=== PATIENT | female | born 1935 | race Caucasian/White ===

== ENCOUNTER 2018-08-16 16:30 | Emergency (ER) | payer MEDICARE ==
--- OUTSIDE RECORDS SUMMARY | 2018-08-16 16:57 | XMS REPORT | Continuity of Care Document ---
:1936 External Reference #:[id number] Author Name SADE Shaw Address [address] [place] [address] Care Team Providers Name Role Phone Ronni Durand RPA Primary Care Physician Unavailable Payers Date Identification Numbers Payment Provider Subscriber Effective: 2001 Policy Number: [id number] Medicare Part B Fariba Colindres PayID: [id number] [address] [place] [address] Policy Number: [id number] [facility] Healthcare Options Fariba Colindres PayID: [id number] [address] [place] [address] Problems Active Problems Provider Date Type 2 diabetes mellitus Onset: 03/14/2014 Non-toxic multinodular goiter Onset: 03/14/2014 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: 03/14/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 generalized Neck pain Onset: 12/13/2013 Gastroesophageal reflux disease Onset: 10/25/2013 Essential hypertension Onset: 10/25/2013 Spinal stenosis of lumbar region Onset: 10/25/2013 Vitamin D deficiency Onset: 08/22/2013 Pure hypercholesterolemia Onset: 11/05/2015 Gouty arthritis of the hand Ronni Durand RPA Onset: 09/09/2016 Allergic rhinitis due to pollen Ronni Durand RPA Onset: 09/09/2016 Localized, primary osteoarthritis of the hand Ronni Durand RPA Onset: 2017 Major depressive disorder, single episode, Ronni Durand RPA Onset: 2017 unspecified Inactive Problems Allergic rhinitis Onset: 10/25/2013 Inactive: 09/09/2016 Depressive disorder Onset: 10/25/2013 Inactive: 09/09/2016 Cellulitis of finger Ronni Durand RPA Onset: 09/08/2016 Inactive: 09/09/2016 Spinal stenosis Ronni Durand RPA Onset: 01/12/2017 Inactive: 03/05/2017 Adult health examination Onset: 10/30/2014 Inactive: 01/13/2018 Benign neoplasm of colon Onset: Inactive: 01/13/2018 Screening mammography Ronni Durand RPA Onset: 01/12/2017 Inactive: 01/13/2018 Screening for osteoporosis Ronni Durand RPA Onset: 01/12/2017 Inactive: 01/13/2018 Resolved Problems Hyperlipidemia Onset: 03/14/2014 Resolved: 05/04/2016 Acute upper respiratory infection, unspecified Ronni Durand RPA Onset: 05/04 Resolved: 05/04/2016 Family History Date Family Member(s) Observation Comments : (age 79 Father due to Unknown Years) Cause Father Peripheral vascular disease Father Alcoholism Father Type 2 Diabetes Mother Heart Attack : (age 74 Mother due to Unknown Years) Causes Mother Hypertension Children 4 Has 4 daughters: One with cervical/ovarian CA, One with MS, One has liver issues, One with GI issues with C.diff First Brother prostate cancer Second Brother prostate cancer First Sister osteoarthritis First Sister concussion after hit by a truck Social History Type Date Description Comments Sex Unknown Marital Status Legal Status: Lives alone in an apartment, 11/1999, 4 daughters, 10 grandchildren, 17 great grandchildren, 3 great great grandchildren 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 [place] [address] [facility] living 3 days weekly Hobbies enjoys bowling ETOH Use averages 10 alcoholic beverages yearly Tobacco Use Start: Unknown Patient has never smoked Smoking Status Reviewed: 01/13/18 Patient has never smoked Exercise walking Type/Frequency Allergies, Adverse Reactions, Alerts Active Allergies Reaction Severity Comments Date Augmentin 03/11/2010 Zithromax 03/11/2010 Medications Active Medications SIG Qnty Indications Ordering Date Provider Methimazole 1 by mouth twice a 60tabs E05.90 Nic Dunn, 08/16/2018 5mg day [employer] Tablets Nystatin apply by topically 90gm Raymundo Castellanos, 11/22/2017 to affect areas MD [id number]/GM Powder three times a day x2 weeks, then needed Olmesartan Medoxomil 1 by mouth every 90tabs Raymundo Castellanos, 09/15/2017 day 40mg Tablets Allopurinol Take One Tablet By 90tabs M10.041 Raymundo Castellanos, 01/12/2017 100mg Mouth Every Day Tablets Metoprolol Tartrate Take One Tablet By 180tabs Raymundo Castellanos, 09/09/2016 Mouth Twice A Day 50mg Tablets Vitamin D3 1 orally every day Unknown 10/31/2014 2000Unit Capsules Aleve Dispense 60 Take 2 Unknown 08/22/2013 220mg Tablets tablet orally up to bid prn. Refills: 0 Vitamin C Dispense 90 Take 1 Unknown 03/11/2010 500mg tablet orally Tablets twice a day Refills: 3 Ranitidine 150 Dispense 180 Take Unknown 03/11/2010 Maximum Strength 1 tablet orally twice a day 150mg Tablets Refills: 3 Aspirin Dispense 90 Take 1 Unknown 03/11/2010 325mg Tablets tablet orally every day Refills: 3 Simvastatin take one tablet by 90tabs Raymundo Castellanos, 03/01/2009 20mg mouth every day Tablets Xanax take 1 tablet 60tabs Raymundo Castellanos, 02/15/1998 0.25mg Tablets orally twice a day needed Loratadine 1 by mouth every Unknown 10mg day Capsules History Medications Spironolactone 1 by mouth 30tabs I10 Raymundo 07/15/2017 - 25mg Tablets every day every MD Emanuel 09/15/2017 morning Nisoldipine ER 1 tab by mouth 90tabs I10 Raymundo 03/04/2017 - 17mg Tablets ER every day MD Emanuel 03/04/2017 24HR Amlodipine Besylate 1 by mouth 90tabs I10 Raymundo 03/04/2017 - 5mg Tablets every day MD Emanuel 09/15/2017 Irbesartan take 1 tablet 90tabs Raymundo 10/08/2016 - 300mg Tablets orally every MD Emanuel 09/15/2017 day Keflex 1 cap by mouth 40caps L03.011 Raymundo 09/08/2016 - 500mg Capsules four times a MD Emanuel 09/09/2016 day Cefuroxime Axetil 1 tab by mouth 14tabs J06.9 Raymundo 05/04/2016 - 250mg Tablets twice a day MD Emanuel 05/11/2016 Metoprolol-Hydrochlorothi Dispense 180 Unknown 12/27/2014 - azide Take 1 tablet 09/09/2016 50-25mg Tablets orally bid Refills: 3 Irbesartan-Hydrochlorothi Dispense 90 Unknown 10/30/2014 - azide Take 1 tablet 10/08/2016 300-12.5mg Tablets orally every day Refills: 3 Lexapro Take 1/2 tablet Unknown 10/25/2013 - 5mg Tablets orally every 12/13/2013 day Refills: 0 Vitamin D3 Super Strength Take 1 tablet Unknown 08/22/2013 - orally every 10/31/2014 2000Unit Capsules day Refills: 0 Bactrim DS Dispense 14 Unknown 10/21/2012 - 800-160mg Tablets Take 1 tablet 10/28/2012 orally every day Refills: 0 Hydrochlorothiazide Take 1 tablet Unknown 05/02/2012 - 12.5mg orally Every 04/21/2013 Tablets day Refills: 0 Diclofenac Sodium Take 1 tablet, Unknown 04/10/2011 - 25mg Tablets delayed release 07/07/2011 DR (enteric coated) orally twice a day with food. Refills: 0 Lidoderm Apply 1 Unknown 09/30/2010 - 5% Patches adhesive patch, 10/18/2012 medicated topically on 12hrs, off 12 hrs Refills: 0 Vitamin D Dispense 13 Unknown 09/30/2010 - (Ergocalciferol) Take 1 capsule 11/30/2010 [id number] (hard, soft, Capsules etc.) orally weekly Refills: 0 Aleve Take 1 tablet Unknown 03/11/2010 - 220mg Tablets orally every 07/07/2011 day prn Refills: 0 D 5000 Take 1 tablet Unknown 03/11/2010 - 5000Unit Tablets orally twice a 11/05/2015 day Refills: 0 Metoprolol Succinate ER Take 1 tablet, Unknown 03/01/2009 - 100mg extended 12/27/2014 Tablets ER 24HR release 24 HR orally Every day Refills: 0 Benicar Take 1 tablet Unknown 03/01/2009 - 20mg Tablets orally Every 04/21/2013 day Refills: 0 Hydrochlorothiazide Take 1 tablet Unknown 03/01/2009 - 25mg orally qd 05/02/2012 Tablets Refills: 0 Tramadol HCL Take 1 tablet Unknown 02/26/2009 - 50mg Tablets orally Three 03/24/2010 times a day prn Refills: 0 Medications Administered in Office Medication SIG Qnty Indications Ordering Provider Date Administer Influenza Virus Vaccine Ronni Durand RPA 01/13/2018 Injection Administer Pneumococcal Vaccine No Ronni Durand RPA 01/12/2017 Physician Fee Sched Same Day Injection Administer Influenza Virus Vaccine Ronni Durand RPA 01/12/2017 Injection Administer Influenza Virus Vaccine Ronni Durand RPA 11/05/2015 Injection Immunizations CPT Code Status Date Vaccine Lot # [id number] Given 01/13/2018 Influenza Vaccine, Quadrivalent, Split Virus, Im [id number] Use (Multi-Dose) 10634 Given 01/12/2017 Prevnar 13 [id number] 92462 Given 01/12/2017 Influenza Vaccine, High Dose > 65 Years Old [id number] (Includes Medicare) 48342 Given 11/05/2015 Influenza Virus Vaccine, [place] 3 [place] [address] Given 10/30/2014 Influenza Virus Vaccine, [place] [address] [place] [address] Given 10/25/2013 Influenza Virus Vaccine, Split [place] [address] Given 10/24/2010 Influenza Virus Vaccine, Split 3 [place] [address] Given 10/24/2010 Influenza Virus Vaccine, Split 3 Yrs AB Vital Signs Date Vital Result Comment 08/16/2018 9:11am Height 58 inches 4'10" Weight 171.00 lb BMI (Body Mass Index) 35.7 kg/m2 BP Systolic 144 mmHg BP Diastolic 78 mmHg Heart Rate 83 /min Body Temperature 98.0 F Body Temperature 36.7 C O2 % BldC Oximetry 97 % 07/14/2018 10:51am Height 58 inches 4'10" Weight 172.00 lb BMI (Body Mass Index) 35.9 kg/m2 BP Systolic 122 mmHg BP Diastolic 82 mmHg Heart Rate 64 /min Body Temperature 98.2 F Body Temperature 36.8 C 01/13/2018 12:53pm Height 58 inches 4'10" Weight 174.00 lb BMI (Body Mass Index) 36.4 kg/m2 BP Systolic 140 mmHg BP Diastolic 78 mmHg Heart Rate 74 /min Body Temperature 98.1 F Body Temperature 36.7 C BP Systolic Recheck 120 mmHg BP Diastolic Recheck 78 mmHg 11/26/2017 1:11pm Height 58 inches 4'10" Weight 176.00 lb BMI (Body Mass Index) 36.8 kg/m2 BP Systolic 140 mmHg BP Diastolic 88 mmHg Heart Rate 70 /min Body Temperature 97.5 F Body Temperature 36.4 C BP Systolic Recheck 132 mmHg BP Diastolic Recheck 88 mmHg 08/27/2017 2:35pm Weight 175.50 lb BP Systolic 160 mmHg BP Diastolic 100 mmHg Heart Rate 80 /min BP Systolic Recheck 136 mmHg BP Diastolic Recheck 72 mmHg 07/15/2017 9:32am Height 58 inches 4'10" Weight 178.00 lb BMI (Body Mass Index) 37.2 kg/m2 BP Systolic 180 mmHg BP Diastolic 90 mmHg Heart Rate 72 /min Body Temperature 98.3 F Body Temperature 36.8 C BP Systolic Recheck 170 mmHg BP Diastolic Recheck 82 mmHg 03/11/2017 11:38am Height 58 inches 4'10" Weight 174.00 lb BMI (Body Mass Index) 36.4 kg/m2 BP Systolic 144 mmHg BP Diastolic 84 mmHg Heart Rate 74 /min Body Temperature 97.7 F Body Temperature 36.5 C BP Systolic Recheck 138 mmHg BP Diastolic Recheck 84 mmHg 03/04/2017 11:23am Height 58 inches 4'10" Weight 177.00 lb BMI (Body Mass Index) 37.0 kg/m2 BP Systolic 150 mmHg BP Diastolic 90 mmHg Heart Rate 78 /min Body Temperature 97.8 F Body Temperature 36.6 C BP Systolic Recheck 150 mmHg BP Diastolic Recheck 84 mmHg 01/12/2017 1:04pm Height 58 inches 4'10" Weight 177.00 lb BMI (Body Mass Index) 37.0 kg/m2 BP Systolic 150 mmHg BP Diastolic 80 mmHg Heart Rate 74 /min Body Temperature 97.6 F Body Temperature 36.4 C 09/09/2016 11:30am Height 58 inches 4'10" Weight 175.00 lb BMI (Body Mass Index) 36.6 kg/m2 BP Systolic 144 mmHg BP Diastolic 78 mmHg Heart Rate 80 /min Body Temperature 97.8 F Body Temperature 36.6 C 09/08/2016 9:38am Height 58 inches 4'10" Weight 175.00 lb BMI (Body Mass Index) 36.6 kg/m2 BP Systolic 144 mmHg BP Diastolic 84 mmHg Heart Rate 74 /min Body Temperature 96.0 F Body Temperature 35.6 C 05/04/2016 9:20am Height 58 inches 4'10" Weight 168.00 lb BMI (Body Mass Index) 35.1 kg/m2 BP Systolic 142 mmHg BP Diastolic 82 mmHg Heart Rate 78 /min Body Temperature 97.7 F Body Temperature 36.5 C BP Systolic Recheck 132 mmHg BP Diastolic Recheck 76 mmHg 11/05/2015 11:01am Height 58 inches Weight 164.00 lb BMI (Body Mass Index) 34.2723 kg/m2 BP Systolic 142 mmHg BP Diastolic 92 mmHg Heart Rate 64 /min Body Temperature 97.6 F Body Temperature 36.4 C 04/30/2015 10:02am Height 57.5 inches Weight 161.00 lb BMI (Body Mass Index) 34.233 kg/m2 BP Systolic 138 mmHg BP Diastolic 72 mmHg Heart Rate 66 /min Body Temperature 97.5 F Body Temperature 36.4 C 10/30/2014 9:05am Height 57.5 inches Weight 154.00 lb BMI (Body Mass Index) 32.7447 kg/m2 BP Systolic 150 mmHg BP Diastolic 78 mmHg Heart Rate 68 /min Body Temperature 97.7 F Body Temperature 36.5 C 05/16/2014 10:00am Height 56.5 inches Weight 152.00 lb BMI (Body Mass Index) 33.4736 kg/m2 BP Systolic 140 mmHg BP Diastolic 82 mmHg Heart Rate 68 /min Body Temperature 98.1 F Body Temperature 36.7 C 03/14/2014 8:03am BP Systolic 150 mmHg BP Diastolic 88 mmHg 03/14/2014 8:03am BP Systolic 142 mmHg BP Diastolic 88 mmHg 03/14/2014 8:03am Height 56.5 inches Weight 154.00 lb BMI (Body Mass Index) 33.914 kg/m2 BP Diastolic 78 mmHg Heart Rate 68 /min Body Temperature 98.8 F Body Temperature 37.1 C 12/13/2013 11:04am Height 56.5 inches Weight 156.00 lb BMI (Body Mass Index) 34.3545 kg/m2 BP Systolic 130 mmHg BP Diastolic 80 mmHg Heart Rate 72 /min Body Temperature 97.9 F Body Temperature 36.6 C 10/25/2013 9:01am Height 56.5 inches Weight 158.00 lb BMI (Body Mass Index) 34.7949 kg/m2 BP Systolic 142 mmHg BP Diastolic 80 mmHg Heart Rate 76 /min Body Temperature 97.9 F Body Temperature 36.6 C 08/22/2013 9:05am BP Systolic 152 mmHg BP Diastolic 80 mmHg 08/22/2013 9:05am BP Systolic 132 mmHg BP Diastolic 80 mmHg 08/22/2013 9:05am Height 59 inches Weight 169.00 lb BMI (Body Mass Index) 34.1301 kg/m2 BP Diastolic 78 mmHg Heart Rate 80 /min Body Temperature 97.9 F Body Temperature 36.6 C 04/21/2013 8:04am BP Systolic 148 mmHg BP Diastolic 78 mmHg 04/21/2013 8:04am BP Systolic 130 mmHg BP Diastolic 78 mmHg 04/21/2013 8:04am Height 59 inches Weight 166.00 lb BMI (Body Mass Index) 33.5243 kg/m2 BP Diastolic 82 mmHg Heart Rate 80 /min Body Temperature 97.6 F Body Temperature 36.4 C 10/18/2012 10:05am Height 59 inches Weight 172.00 lb BMI (Body Mass Index) 34.736 kg/m2 BP Systolic 124 mmHg BP Diastolic 74 mmHg Heart Rate 74 /min Body Temperature 97.8 F Body Temperature 36.6 C 05/02/2012 11:04am Height 59 inches Weight 172.00 lb BMI (Body Mass Index) 34.736 kg/m2 BP Systolic 146 mmHg BP Diastolic 72 mmHg Heart Rate 68 /min Body Temperature 98.1 F Body Temperature 36.7 C 04/12/2012 10:03am Height 59 inches Weight 171.00 lb BMI (Body Mass Index) 34.534 kg/m2 BP Systolic 136 mmHg BP Diastolic 84 mmHg Heart Rate 68 /min Body Temperature 97.6 F Body Temperature 36.4 C 10/13/2011 2:00am Height 59 inches Weight 171.00 lb BMI (Body Mass Index) 34.534 kg/m2 BP Systolic 148 mmHg BP Diastolic 80 mmHg Heart Rate 78 /min Body Temperature 97.7 F Body Temperature 36.5 C 07/07/2011 2:05am Height 59 inches Weight 177.00 lb BMI (Body Mass Index) 35.7458 kg/m2 BP Systolic 122 mmHg BP Diastolic 66 mmHg Heart Rate 68 /min Body Temperature 98.7 F Body Temperature 37.1 C 04/10/2011 8:04am Height 59 inches Weight 176.00 lb BMI (Body Mass Index) 35.5438 kg/m2 BP Systolic 140 mmHg BP Diastolic 81 mmHg Heart Rate 78 /min Body Temperature 98.5 F Body Temperature 36.9 C 09/23/2010 9:03am Height 59 inches Weight 182.00 lb BMI (Body Mass Index) 36.7555 kg/m2 BP Systolic 154 mmHg BP Diastolic 78 mmHg Heart Rate 72 /min Body Temperature 97.9 F Body Temperature 36.6 C 03/24/2010 10:04am Weight 177.00 lb BP Systolic 148 mmHg BP Diastolic 72 mmHg Heart Rate 60 /min Results Test Date Facility Test Result H/L Range Note CMP-Female 07/14/2018 [facility] Glucose 194 mg/ dL High 74-106 1 [address] [place] [address] [phone] BUN 33 mg/dL High 6-20 Creatinine 1.4 mg/dL High 0.5-1.3 Sodium 139 mmol/L 136-145 Potassium 5.3 mmol/L 3.5-5.3 Chloride 105 mmol/L 98-107 Co2 24 mEq/L 20-31 Anion Gap 10 mmol/L 7-16 eGFR-female 36 mL/m/1.73m - eGFR-Aa female 44 mL/m/1.73m - 2 Alk. Phos. 81 U/L 46-116 Alt 19 U/L 4-36 3 Ast 21 U/L 8-33 Total Bilirubin 0.3 mg/dL 0.3-1.2 Total Protein 6.4 g/dL 6.4-8.3 4 Albumin 4.5 g/dL 3.6-5.1 A/G Ratio 2.4 Ratio High 1.0-2.0 Globulin 1.9 g/dL 1.9-3.7 Calcium 10.0 mg/dL 8.9-10.5 LPPM 07/14/2018 [facility] Cholesterol 153 mg/ dL 0-200 [address] [place] [address] [phone] Triglycerides 125 mg/dL 0-249 5 HDL 45 mg/dL 40-60 LDL-Calculated 83 mg/dL 0-130 VLDL 25 mg/dL 0-28 Cardiac Risk 3.40 Ratio Low 3.7-5.3 Laboratory test 07/14/2018 [facility] Hgb A1c 7.5 % High 3.6-6.9 6 finding [address] [place] [address] [phone] Uric Acid 6.6 mg/dL 2.6-7.2 TSH3 0.094 mIU/ml Low 0.350-5.500 Free T4 1.56 ng/dL 0.89-1.80 Est. Average Glucose 169 mg/dL - 7 Venipuncture DONE - CMP-Female 01/13/2018 [facility] Glucose 119 mg/ dL High 74-106 8 [address] [place] [address] [phone] BUN 29 mg/dL High 6-20 Creatinine 1.3 mg/dL 0.5-1.3 Sodium 142 mmol/L 136-145 Potassium 5.0 mmol/L 3.5-5.3 Chloride 108 mmol/L High 98-107 Co2 24 mEq/L 20-31 Anion Gap 10 mmol/L 7-16 eGFR-female 39 mL/m/1.73m - eGFR-Aa female 48 mL/m/1.73m - 9 Alk. Phos. 77 U/L 46-116 Alt 22 U/L 4-36 10 Ast 26 U/L 8-33 Total Bilirubin 0.3 mg/dL 0.3-1.2 Total Protein 6.9 g/dL 6.4-8.3 11 Albumin 4.7 g/dL 3.6-5.1 A/G Ratio 2.1 Ratio High 1.0-2.0 Globulin 2.2 g/dL Low 2.4-3.7 Calcium 9.8 mg/dL 8.9-10.5 Laboratory test 01/13/2018 [facility] Uric Acid 6.9 mg/dL 2.6-7.2 12 finding [address] [place] [address] [phone] TSH3 0.126 mIU/ml Low 0.350-5.500 13 Free T4 1.52 ng/dL 0.89-1.80 14 Vitamin D, 25(Oh). 41.92 ng/ml 30-100 15 Est. Average Glucose 134 mg/dL - 16 Venipuncture DONE - 17 Cbcadp 01/13/2018 [facility] WBC. 9.54 x10E3/uL 4.2-12.0 [address] [place] [address] [phone] RBC 4.70 x10E6/uL 3.9-5.4 HGB 14.5 g/dL 12.0-16.0 HCT 44.1 % 36-47 MCV 93.9 fL 80-98 MCH 31.0 pg 27-33 MCHC 33.0 g/dL 32-36 RDW 13.3 % 11.2-15.2 PLT 184 x10E3/uL 135-420 MPV 9.1 fL 7.0-12.3 % Barbara 66.7 % 41.0-80.0 %Lym 26.2 % 10.0-45.2 %[place] 5.0 % 2.0-13.0 %Eos 1.8 % 0.0-8.0 %Baso 0.3 % 0.0-3.0 Neut 6.4 x10E3/uL 2.0-8.1 Lymp 2.5 x10E3/uL 0.6-3.1 [place] 0.5 x10E3/uL 0.0-1.0 Eos 0.2 x10E3/uL 0.0-0.6 Baso 0.0 x10E3/uL 0.0-0.2 Uam 01/13/2018 [facility] Color. YELLOW - [address] [place] [address] [phone] Clarity. CLEAR Clear-Clear Specific [place]. 1.013 1.005-1.030 PH. 5.0 4.6-8.0 Protein. NEGATIVE Neg-Negative Glucose, Urine NEGATIVE Neg-Negative Ketone. NEGATIVE Neg-Negative bilirubin. NEGATIVE Neg-Negative Blood. NEGATIVE Neg-Negative Nitrite. NEGATIVE Neg-Negative Leukocytes. NEGATIVE Neg-Negative Red Blood Cell 0-2 0-2 White Blood Cell 0-2 0-5 Squamous Epithelial Cell 0-2 0-10 Bacteria. NEGATIVE Neg-Negative LPPM 01/13/2018 [facility] Cholesterol 149 mg/ dL 0-200 [address] [place] [address] [phone] Triglycerides 110 mg/dL 0-249 18 HDL 54 mg/dL 40-60 LDL-Calculated 73 mg/dL 0-130 VLDL 22 mg/dL 0-28 Cardiac Risk 2.76 Ratio Low 3.7-5.3 Microalbumin Urine 01/13/2018 [facility] Random 29.0 mg/L - 19 [address] [place] [address] [phone] Random Urine Creatinine 75.7 mg/dL - 20 Alb/Creat Ratio 38.31 Ratio High 0-29.9 21 Laboratory test 01/13/2018 [facility] Hgb A1c 6.3 % 3.6-6.9 22 finding [address] [place] [address] [phone] BMP-Female 11/26/2017 [facility] Glucose 130 mg/ dL High 74-106 23 [address] [place] [address] [phone] BUN 22 mg/dL High 6-20 Creatinine 1.2 mg/dL 0.5-1.3 Sodium 142 mmol/L 136-145 Potassium 4.6 mmol/L 3.5-5.3 Chloride 106 mmol/L 98-107 Co2 26 mEq/L 20-31 Anion Gap 10 mmol/L 7-16 eGFR-female 43 mL/m/1.73m - eGFR-Aa female 52 mL/m/1.73m - 24 Calcium 9.9 mg/dL 8.9-10.5 Cbcadp 11/26/2017 [facility] WBC. 5.49 x10E3/uL 4.2-12.0 25 [address] [place] [address] [phone] RBC 4.49 x10E6/uL 3.9-5.4 HGB 13.7 g/dL 12.0-16.0 HCT 41.4 % 36-47 MCV 92.2 fL 80-98 MCH 30.5 pg 27-33 MCHC 33.1 g/dL 32-36 RDW 13.7 % 11.2-15.2 PLT 194 x10E3/uL 135-420 MPV 8.4 fL 7.0-12.3 % Barbara 57.2 % 41.0-80.0 %Lym 34.9 % 10.0-45.2 %[place] 5.8 % 2.0-13.0 %Eos 1.7 % 0.0-8.0 %Baso 0.4 % 0.0-3.0 Neut 3.1 x10E3/uL 2.0-8.1 Lymp 1.9 x10E3/uL 0.6-3.1 [place] 0.3 x10E3/uL 0.0-1.0 Eos 0.1 x10E3/uL 0.0-0.6 Baso 0.0 x10E3/uL 0.0-0.2 PT-Inr 11/26/2017 [facility] PT 10.9 Sec 10.6 -13.4 [address] [place] [id number] [phone] Inr 0.9 - 26 Laboratory test 11/26/2017 [facility] PTT 30.6 Sec 25.7-35.7 27 finding [address] [place] [address] [phone] Venipuncture DONE - 28 BMP-Female 08/27/2017 [facility] Glucose 118 mg/ dL High 74-106 29 [address] [place] [address] [phone] BUN 27 mg/dL High 6-20 Creatinine 1.2 mg/dL 0.5-1.3 Sodium 137 mmol/L 136-145 Potassium mmol/L Out 3.5-5.3 30 Chloride 107 mmol/L 98-107 Co2 20 mEq/L 20-31 Anion Gap 10 mmol/L 7-16 eGFR-female 43 mL/m/1.73m - eGFR-Aa female 52 mL/m/1.73m - 31 Calcium 9.6 mg/dL 8.9-10.5 Laboratory test 08/27/2017 [facility] Uric Acid 6.1 mg/dL 2.6-7.2 finding [address] [place] [address] [phone] Venipuncture DONE - Laboratory test 07/15/2017 [facility] Hgb A1c 5.7 % 3.6-6.9 32 finding [address] [place] [address] [phone] Uric Acid 5.9 mg/dL 2.6-7.2 33 TSH3 0.600 mIU/ml 0.350-5.500 34 Free T4 1.43 ng/dL 0.89-1.80 35 Est. Average Glucose 117 mg/dL - 36 Venipuncture DONE - 37 LPPM 07/15/2017 [facility] Cholesterol 136 mg/ dL 0-200 [address] [place], [place] [id number] [phone] Triglycerides 106 mg/dL 0-249 38 HDL 48 mg/dL 40-60 LDL-Calculated 67 mg/dL 0-130 VLDL 21 mg/dL 0-28 Cardiac Risk 2.83 Ratio Low 3.7-5.3 [facility]-Female 07/15/2017 [facility] Glucose 176 mg/ dL High 74-106 39 [address] [place] [address] [phone] BUN 21 mg/dL High 6-20 Creatinine 1.1 mg/dL 0.5-1.3 Sodium 142 mmol/L 136-145 Potassium 4.6 mmol/L 3.5-5.3 Chloride 107 mmol/L 98-107 Co2 28 mEq/L 20-31 Anion Gap 7 mmol/L 7-16 eGFR-female 48 mL/m/1.73m - eGFR-Aa female 58 mL/m/1.73m - 40 Alk. Phos. 91 U/L 46-116 Alt 23 U/L 4-36 41 Ast 25 U/L 8-33 Total Bilirubin 0.5 mg/dL 0.3-1.2 Total Protein 6.5 g/dL 6.4-8.3 42 Albumin 4.4 g/dL 3.6-5.1 A/G Ratio 2.1 Ratio High 1.0-2.0 Globulin 2.1 g/dL Low 2.4-3.7 Calcium 9.8 mg/dL 8.9-10.5 [facility]-Female 01/12/2017 [facility] Glucose 122 mg/ dL High 74-106 43 [address] [place] [address] [phone] BUN 24 mg/dL High 6-20 Creatinine 1.1 mg/dL 0.5-1.3 Sodium 142 mmol/L 136-145 Potassium 4.6 mmol/L 3.5-5.3 Chloride 108 mmol/L High 98-107 Co2 24 mEq/L 20-31 Anion Gap 10 mmol/L 7-16 eGFR-female 48 mL/m/1.73m - eGFR-Aa female 58 mL/m/1.73m - 44 Alk. Phos. 84 U/L 46-116 Alt 19 U/L 4-36 45 Ast 21 U/L 8-33 Total Bilirubin 0.4 mg/dL 0.3-1.2 Total Protein 6.9 g/dL 6.4-8.3 46 Albumin 4.7 g/dL 3.4-4.8 A/G Ratio 2.1 Ratio High 1.0-2.0 Globulin 2.2 g/dL Low 2.4-3.7 Calcium 10.2 mg/dL 8.9-10.5 Cbcadp 01/12/2017 [facility] WBC 7.0 x10E3/uL 4.2-12.0 [address] [place] [address] [phone] RBC 4.60 x10E6/uL 3.9-5.4 HGB 14.1 g/dL 12.0-16.0 HCT 42.0 % 36-47 MCV 91.2 fL 80-98 MCH 30.6 pg 27-33 MCHC 33.5 g/dL 32-36 RDW 13.6 % 11.2-15.2 PLT 192 x10E3/uL 135-420 MPV 8.9 fL 7.0-12.3 % Barbara 63.4 % 41.0-80.0 %Lym 28.3 % 10.0-45.2 %[place] 5.0 % 2.0-13.0 %Eos 2.8 % 0.0-8.0 %Baso 0.6 % 0.0-3.0 Neut 4.5 x10E3/uL 2.0-8.1 Lymp 2.0 x10E3/uL 0.6-3.1 [place] 0.4 x10E3/uL 0.0-1.0 Eos 0.2 x10E3/uL 0.0-0.6 Baso 0.0 x10E3/uL 0.0-0.2 Uam 01/12/2017 [facility] Color. YELLOW - 47 [address] [place] [address] [phone] Clarity. CLEAR Clear-Clear Specific [place]. 1.010 1.005-1.030 PH. 5.5 4.6-8.0 Protein. NEGATIVE Neg-Negative Glucose, Urine NEGATIVE Neg-Negative Ketone. NEGATIVE Neg-Negative bilirubin. NEGATIVE Neg-Negative Blood. NEGATIVE Neg-Negative Nitrite. NEGATIVE Neg-Negative Leukocytes. NEGATIVE Neg-Negative Red Blood Cell 3-5 High 0-2 White Blood Cell 0-2 0-5 Squamous Epithelial Cell 0-2 0-10 Bacteria. NEGATIVE Neg-Negative LPPM 01/12/2017 [facility] Cholesterol 166 mg/ dL 0-200 [address] [place] [address] [phone] Triglycerides 102 mg/dL 0-249 48 HDL 55 mg/dL 40-60 LDL-Calculated 91 mg/dL 0-130 VLDL 20 mg/dL 0-28 Cardiac Risk 3.02 Ratio Low 3.7-5.3 Laboratory test 01/12/2017 [facility] Hgb A1c 6.5 % 3.6-6.9 49 finding [address] [place] [address] [phone] Microalbumin 01/12/2017 [facility] Random 28.0 - 50 Urine [address] Microalbumin mg/[place] [address] [phone] Random Urine Creatinine 39.2 mg/dL - 51 Alb/Creat Ratio 71.43 Ratio High 0-29.9 Laboratory test 01/12/2017 [facility] Uric Acid 7.6 mg/dL High 2.6-7.2 finding [address] [place] [address] [phone] TSH3 0.211 mIU/ml Low 0.350-5.500 Free T4 1.61 ng/dL 0.89-1.80 Vitamin D, 25(Oh). 35.87 ng/ml 30-100 52 Est. Average Glucose 140 mg/dL - 53 Venipuncture DONE - CMP-Female 09/08/2016 [facility] Albumin 4.4 g/ dL 3.4-4.8 54 [address] [place] [address] [phone] A/G Ratio 1.6 Ratio 1.0-2.0 Globulin 2.7 g/dL 2.4-3.7 Calcium 9.8 mg/dL 8.9-10.5 Cbcadp 09/08/2016 [facility] WBC 6.0 x10E3/uL 4.2-12.0 [address] [place] [address] [phone] RBC 4.46 x10E6/uL 3.9-5.4 HGB 14.0 g/dL 12.0-16.0 HCT 40.6 % 36-47 MCV 90.9 fL 80-98 MCH 31.3 pg 27-33 MCHC 34.5 g/dL 32-36 RDW 13.6 % 11.2-15.2 PLT 189 x10E3/uL 135-420 MPV 8.5 fL 7.0-12.3 % Barbara 62.9 % 41.0-80.0 %Lym 28.5 % 10.0-45.2 %[place] 4.3 % 2.0-13.0 %Eos 3.7 % 0.0-8.0 %Baso 0.6 % 0.0-3.0 Neut 3.8 x10E3/uL 2.0-8.1 Lymp 1.7 x10E3/uL 0.6-3.1 [place] 0.3 x10E3/uL 0.0-1.0 Eos 0.2 x10E3/uL 0.0-0.6 Baso 0.0 x10E3/uL 0.0-0.2 Laboratory test 09/08/2016 [facility] Uric Acid 7.8 mg/dL High 2.6-7.2 finding [address] [place] [address] [phone] WSR 16 mm/hr 0-20 CRP <0.5 mg/dL Out 0-1.0 Venipuncture DONE - Laboratory test 05/04/2016 [facility] Hgb A1c 6.6 % 3.6-6.9 55 finding [address] [place] [address] [phone] CMP-Female 05/04/2016 [facility] Glucose 172 mg/ dL High 74-106 56 [address] [place] [address] [phone] BUN 28 mg/dL High 6-20 Creatinine 1.3 mg/dL 0.5-1.3 Sodium 143 mmol/L 136-145 Potassium 5.0 mmol/L 3.5-5.3 Chloride 104 mmol/L 98-107 Co2 27 mEq/L 20-31 Anion Gap 12 mmol/L 7-16 eGFR-female 40 mL/m/1.73m - eGFR-Aa female 48 mL/m/1.73m - 57 Alk. Phos. 91 U/L 46-116 Alt 17 U/L 4-36 Ast 22 U/L 8-33 Total Bilirubin 0.3 mg/dL 0.3-1.2 Total Protein 7.4 g/dL 6.4-8.3 58 Albumin 4.8 g/dL 3.4-4.8 A/G Ratio 1.8 Ratio 1.0-2.0 Globulin 2.6 g/dL 2.4-3.7 Calcium 10.1 mg/dL 8.9-10.5 LPPM 05/04/2016 [facility] Cholesterol 172 mg/ dL 0-200 [address] [place] [address] [phone] Triglycerides 130 mg/dL 0-249 59 HDL 52 mg/dL 40-60 LDL-Calculated 94 mg/dL 0-130 VLDL 26 mg/dL 0-28 Cardiac Risk 3.31 Ratio Low 3.7-5.3 Laboratory test 05/04/2016 [facility] TSH3 0.787 mIU/ml 0.350-5.500 60 finding [address] [place], [place] [phone] Free T4 1.17 ng/dL 0.89-1.80 61 Est. Average Glucose 143 mg/dL - 62 Venipuncture DONE - 63 Vitamin D, 25(Oh). 11/05/2015 [facility] Vitamin D, 25(Oh). 29.43 [address] [place], [place] [id number] [phone] Venipuncture 11/05/2015 [facility] Venipuncture Done [address] [place] [phone] Urine w/micro 11/05/2015 [facility] Bacteria. Negative [address] [place] [phone] Blood. Negative Clarity. Clear Color. Yellow Ketone. Negative Leukocytes. Negative [place] 0.3 Nitrite. Negative PH. 5.5 Protein. Negative RBC 4.48 Red Blood Cell 0-2 Specific [place]. 1.011 Squamous Epithelial Cell 0-2 WBC 6.7 White Blood Cell 0-2 bilirubin. Negative A1c 11/05/2015 [facility] Hgb A1c 6.1 [address] [address] [phone] CBC 11/05/2015 [facility] % Barbara 63.9 [address] [address] [phone] %Baso 0.5 %Eos 3.7 %Lym 26.9 %Breckinridge 5 Baso 0 Eos 0.3 HCT 41 HGB 14 Lymp 1.8 MCH 31.3 MCHC 34.2 MCV 91.6 MPV 8.9 Neut 4.3 PLT 189 RDW 13.4 Free T4 11/05/2015 [facility] Free T4 1.22 [address] [place] [address] [phone] Glucose, Urine 11/05/2015 [facility] Glucose, Urine Negative [address] [place] [address] [phone] Hepatic Function 11/05/2015 [facility] A/G Ratio 1.6 Panel Ck [place] [phone] Albumin 4.6 Alk. Phos. 76 Alt 17 Ast 21 Globulin 2.8 Total Bilirubin 0.4 Total Protein 7.4 Lipid Panel 11/05/2015 [facility] Cardiac Risk 2.95 [address] [place] [phone] Cholesterol 165 Hdl 56 LDL-Calculated 84 Triglycerides 127 VLDL 25 eGFR-Aa female 53 eGFR-female 43 Metabolic Panel 11/05/2015 [facility] Alb/Creat Ratio 13.64 [address] [place] [phone] Anion Gap 9 Bun 25 Calcium 10.2 Chloride 104 Co2 28 Creatinine 1.2 Est. Average Glucose 128 Glucose 129 Potassium 4.9 Sodium 141 TSH3 11/05/2015 [facility] TSH3 0.504 [address] [place] [address] [phone] Random Urine 11/05/2015 [facility] Random Urine 66 Creatinine [address] Creatinine [place] [address] [phone] Random Microalbumin 11/05/2015 [facility] Random Microalbumin 9 [address] [place] [address] [phone] A1c 04/30/2015 [facility] Hgb A1c 5.9 [address] [place] [phone] Hepatic Function 04/30/2015 [facility] A/G Ratio 1.9 Panel [address] [place] [address] [phone] Albumin 4.4 Alk. Phos. 89 Alt 14 Ast 17 Globulin 2.3 Total Bilirubin 0.4 Total Protein 6.7 Lipid Panel 04/30/2015 [facility] Cardiac Risk 2.96 [address] [place] [address] [phone] Cholesterol 163 Hdl 55 LDL-Calculated 90 Triglycerides 88 VLDL 18 eGFR-Aa female 53 eGFR-female 43 Metabolic Panel 04/30/2015 [facility] Anion Gap 7 [address] [place] [address] [phone] Bun 29 Calcium 9.7 Chloride 109 Co2 27 Creatinine 1.2 Est. Average Glucose 123 Glucose 121 Potassium 4.9 Sodium 143 Venipuncture 04/30/2015 [facility] Venipuncture Done [address] [place] [phone] A1c 10/30/2014 [facility] Hgb A1c 5.9 [address] [place] [phone] CBC 10/30/2014 [facility] % Barbara 68 [address] [place] [address] [phone] %Baso 0.5 %Eos 2.1 %Lym 24.8 %[place] 4.6 Baso 0 Eos 0.1 HCT 40.3 HGB 13.4 Lymp 1.7 MCH 29.9 MCHC 33.3 MCV 89.9 MPV 8.2 Neut 4.6 PLT 193 RDW 14 Free T4 10/30/2014 [facility] Free T4 1.43 [address] [place] [address] [phone] Glucose, Urine 10/30/2014 [facility] Glucose, Urine Negative [address] [place], [place] [phone] [phone] Hepatic Function 10/30/2014 [facility] A/G Ratio 2 Panel [address] [place] [address] [phone] Albumin 4.5 Alk. Phos. 88 Alt 15 Ast 17 Globulin 2.3 Total Bilirubin 0.4 Total Protein 6.8 Lipid Panel 10/30/2014 [facility] Cardiac Risk 2.91 [address] [place], [place] [address] [phone] Cholesterol 169 Hdl 58 LDL-Calculated 91 Triglycerides 100 VLDL 20 eGFR-Aa female 65 eGFR-female 54 Metabolic Panel 10/30/2014 [facility] Alb/Creat Ratio 10.83 [address] [place], [place] [phone] Anion Gap 10 Bun 24 Calcium 10.1 Chloride 104 Co2 27 Creatinine 1 Est. Average Glucose 123 Glucose 118 Potassium 4.8 Sodium 141 Random Microalbumin 10/30/2014 [facility] Random 8.[address] [place] [address] [phone] Random Urine 10/30/2014 [facility] Random Urine 79.4 Creatinine [address] Creatinine [place], [place] [phone] TSH3 10/30/2014 [facility] TSH3 0.[address] [place], [place] [address] [phone] Urine w/micro 10/30/2014 [facility] Bacteria. Negative [address] [place], [place] [phone] [phone] Blood. Negative Clarity. Clear Color. Yellow Ketone. Negative Leukocytes. Negative [place] 0.3 Nitrite. Negative PH. 5 Protein. Negative RBC 4.47 Red Blood Cell 0-2 Specific [place]. 1.013 Squamous Epithelial Cell 0-2 WBC 6.7 White Blood Cell 0-2 bilirubin. Negative Venipuncture 10/30/2014 [facility] Venipuncture Done [address] [address] [phone] Vitamin D, 25(Oh). 10/30/2014 [facility] Vitamin D, 25(Oh). 22.1 [address] [address] [phone] Urine w/micro 10/25/2013 [facility] BLD Negative [address] [place] [address] [phone] Bacteria 2+ Bili Negative Epi 2+ Ket Negative Adal Negative Nit Negative Pro Negative Uro Normal WBC 0-2 Urine W/micro 10/25/2013 [facility] Glu Normal [address] [address] [phone] PH 5 SP GR 1.01 TSH 10/25/2013 [facility] TSH 0.06 [address] [place] [address] [phone] Metabolic Panel 10/25/2013 [facility] Agap 10 [address] [address] [phone] BUN/CR 15 Bun 18 CA 10.1 CL 101 Co2 28 Crea 1.2 Gluc 174 K 3.9 NA 138 Malb 10/25/2013 [facility] Malb Negative [address] [place] [address] [phone] Lipid Panel 10/25/2013 [facility] Alti 22 [address] [place] [address] [phone] Chol 134 HDL Risk 3 Hdl 50 LDLC 58 TGL 132 Hepatic Function Panel 10/25/2013 [facility] Alb 4.2 [address] [address] [phone] Alp 106 Ast 16 TP 7.3 Tbil 0.3 FT4 10/25/2013 [facility] FT4 1.19 [address] [place] [address] [phone] CBC 10/25/2013 [facility] Gran % 64.7 [address] [place] [address] [phone] HCT 38.9 HGB 12.6 Lymph % 27.8 MCH 30 MCHC 32.4 MCV 92.6 Mid % 7.5 PLT 244 RBC 4.2 RDW 14.2 WBC 7 A1c 10/25/2013 [facility] A1c 6 [address] [place] [address] [phone] A1c 04/21/2013 [facility] A1c 7.1 [address] [place] [address] [phone] Hepatic Function Panel 04/21/2013 [facility] Alb 4.4 [address] [place] [address] [phone] Alp 103 Ast 19 TP 7.3 Tbil 0.4 Lipid Panel 04/21/2013 [facility] Alti 30 [address] [place] [address] [phone] Chol 172 HDL Risk 3 Hdl 56 LDLC 96 TGL 101 Metabolic Panel 04/21/2013 [facility] Agap 4 [address] [place] [address] [phone] BUN/CR 21.5 Bun 28 CA 9.3 CL 103 Co2 30 Crea 1.3 Gluc 165 K 4.4 NA 137 1 [place] [employer] (ADA) Recommended Range is 65-99 mg/dL 2 Normal Kidney Function or Mild Disease GFR >59 mL/min/1.73m2 Chronic Kidney Disease GFR 15-59 mL/min/1.73m2 Renal Failure GFR <15 mL/min/1.73m2 3 Effective 08/15/2016: [employer] has indicated interference with the drugs sulfasalazine and sulfapyridine. They suggest collection should occur prior to drug administration due to falsely depressed results. 4 Results may reflect a potential interference in Total Protein results in patients receiving dextran as blood volume expanders. 5 National Cholesterol Education Program (NCEP) Guidelines: Recommended Range <150 mg/dL 6 Hgb A1c Interpretation: <5.8% - Non-diabetic >6.5% - Diabetic <7.0% - ADA diabetic treatment goal 7 The Estimated Average Glucose is a calculation of the average glucose over the last 120 days including non-fasting as well as fasting levels. 8 [place] [employer] (ADA) Recommended Range is 65-99 mg/dL 9 Normal Kidney Function or Mild Disease GFR >59 mL/min/1.73m2 Chronic Kidney Disease GFR 15-59 mL/min/1.73m2 Renal Failure GFR <15 mL/min/1.73m2 10 Effective 08/15/2016: [employer] has indicated interference with the drugs sulfasalazine and sulfapyridine. They suggest collection should occur prior to drug administration due to falsely depressed results. 11 Results may reflect a potential interference in Total Protein results in patients receiving dextran as blood volume expanders. 12 fasting 13 fasting 14 fasting 15 Recommended Levels for Circulating 25-hydroxy Vitamin D: Vitamin D Status 25-OH Vitamin D Test Result Deficient <10ng/mL Insufficient 10-29ng/mL Sufficient 30-100ng/mL Potential Intoxication >100ng/mL A pediatric reference range has not been established using this method. 16 The Estimated Average Glucose is a calculation of the average glucose over the last 120 days including non-fasting as well as fasting levels. 17 fasting 18 National Cholesterol Education Program (NCEP) Guidelines: Recommended Range <150 mg/dL 19 Reference Range for Random Microalbumin not defined 20 Reference Range Random Urine Creatinine not defined 21 fasting 22 Hgb A1c Interpretation: <5.8% - Non-diabetic >6.5% - Diabetic <7.0% - ADA diabetic treatment goal 23 Labprint and transmitted at 424 11/26/17 kk [place] [employer] (ADA) Recommended Range is 65-99 mg/dL 24 Normal Kidney Function or Mild Disease GFR >59 mL/min/1.73m2 Chronic Kidney Disease GFR 15-59 mL/min/1.73m2 Renal Failure GFR <15 mL/min/1.73m2 25 results labprinted 343pm jmd 26 results labprinted and transmitted 405pm jmd * INR Interpretation : . Recommended Theraputic Range: 2.0 - 3.0 . For treatment/prophylaxis . of venous thrombosis, . prevention of embolism. . . 27 Please note reference range change as of 07/15/[address] JENN ARANDA 29 [place] [employer] (ADA) Recommended Range is 65-99 mg/dL 30 Specimen grossly hemolyzed- results unreportable- redraw suggested 31 Normal Kidney Function or Mild Disease GFR >59 mL/min/1.73m2 Chronic Kidney Disease GFR 15-59 mL/min/1.73m2 Renal Failure GFR <15 mL/min/1.73m2 32 Hgb A1c Interpretation: <5.8% - Non-diabetic >6.5% - Diabetic <7.0% - ADA diabetic treatment goal 33 fasting 34 fasting 35 fasting 36 The Estimated Average Glucose is a calculation of the average glucose over the last 120 days including non-fasting as well as fasting levels. 37 fasting 38 National Cholesterol Education Program (NCEP) Guidelines: Recommended Range <150 mg/dL 39 [place] [employer] (ADA) Recommended Range is 65-99 mg/dL 40 Normal Kidney Function or Mild Disease GFR >59 mL/min/1.73m2 Chronic Kidney Disease GFR 15-59 mL/min/1.73m2 Renal Failure GFR <15 mL/min/1.73m2 41 Effective 08/15/2016: [employer] has indicated interference with the drugs sulfasalazine and sulfapyridine. They suggest collection should occur prior to drug administration due to falsely depressed results. 42 Results may reflect a potential interference in Total Protein results in patients receiving dextran as blood volume expanders. 43 [place] [employer] (ADA) Recommended Range is 65-99 mg/dL 44 Normal Kidney Function or Mild Disease GFR >59 mL/min/1.73m2 Chronic Kidney Disease GFR 15-59 mL/min/1.73m2 Renal Failure GFR <15 mL/min/1.73m2 45 Effective 08/15/2016: [employer] has indicated interference with the drugs sulfasalazine and sulfapyridine. They suggest collection should occur prior to drug administration due to falsely depressed results. 46 Results may reflect a potential interference in Total Protein results in patients receiving dextran as blood volume expanders. 47 Labprint and Transmitted 01/12/17 [facility] 48 National Cholesterol Education Program (NCEP) Guidelines: Recommended Range <150 mg/dL 49 Hgb A1c Interpretation: <5.8% - Non-diabetic >6.5% - Diabetic <7.0% - ADA diabetic treatment goal 50 Reference Range for Random Microalbumin not defined 51 Reference Range Random Urine Creatinine not defined 52 Recommended Levels for Circulating 25-hydroxy Vitamin D: Vitamin D Status 25-OH Vitamin D Test Result Deficient <10ng/mL Insufficient 10-29ng/mL Sufficient 30-100ng/mL Potential Intoxication >100ng/mL A pediatric reference range has not been established using this method. 53 The Estimated Average Glucose is a calculation of the average glucose over the last 120 days including non-fasting as well as fasting levels. 54 Discussed at today 55 Hgb A1c Interpretation: <5.8% - Non-diabetic >6.5% - Diabetic <7.0% - ADA diabetic treatment goal 56 [place] [employer] (ADA) Recommended Range is 65-99 mg/dL 57 Normal Kidney Function or Mild Disease GFR >59 mL/min/1.73m2 Chronic Kidney Disease GFR 15-59 mL/min/1.73m2 Renal Failure GFR <15 mL/min/1.73m2 58 Results may reflect a potential interference in Total Protein results in patients receiving dextran as blood volume expanders. 59 National Cholesterol Education Program (NCEP) Guidelines: Recommended Range <150 mg/dL 60 fasting 61 fasting 62 The Estimated Average Glucose is a calculation of the average glucose over the last 120 days including non-fasting as well as fasting levels. 63 fasting Procedures Date Code Description Status 11/26/2017 24030 Electrocardiogram Complete Completed 03/04/2017 26784 Electrocardiogram Complete Completed 09/09/2016 36807 Electrocardiogram Complete Completed 11/05/2015 07100 Electrocardiogram Complete Completed 05/02/2013 01192 Cardiovascular Stress Test W/Interpretation & Report Completed 05/02/2013 19763 Myocardial Perfusion Imaging Tomographic (Spect) Multiple Completed Studies Encounters Type Date Location Provider Dx Diagnosis Office Visit 07/14/2018 [facility] AT [facility], E78.00 Pure 11:00a [facility] hypercholesterolem ia, unspecified E11.9 Type 2 diabetes mellitus without complications M10.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, 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 I10 Essential (primary) hypertension Z79.84 halfway (current) use of oral hypoglycemic drugs Office Visit 01/13/2018 1:00p [facility] AT [facility], Z00.00 Encntr for [facility] general adult medical exam w/o abnormal findings I10 Essential (primary) hypertension E78.00 Pure hypercholesterolemia, unspecified E11.9 Type 2 diabetes mellitus without complications M10.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, 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 F32.9 Major depressive disorder, single episode, unspecified K21.9 Gastro-esophageal reflux disease without esophagitis E55.9 Vitamin D deficiency, unspecified M48.00 Spinal stenosis, site unspecified J30.1 Allergic rhinitis due to pollen Z23 Encounter for immunization Office Visit 11/26/2017 [facility] Ronn[place], Z01.818 Encounter for 1:40p AT [facility] other preprocedural examination C44.311 Basal cell carcinoma of skin of nose I10 Essential (primary) hypertension E78.00 Pure hypercholesterolemia, unspecified E11.9 Type 2 diabetes mellitus without complications M10.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, 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 F32.9 Major depressive disorder, single episode, unspecified K21.9 Gastro-esophageal reflux disease without esophagitis E55.9 Vitamin D deficiency, unspecified J30.1 Allergic rhinitis due to pollen M48.00 Spinal stenosis, site unspecified Office Visit 08/27/2017 2:40p [facility] AT [facility], [facility] Essential [facility] (primary) hypertension Office Visit 07/15/2017 9:00a [facility] AT [facility], 0 Essential [facility] (primary) hypertension E78.00 Pure hypercholesterolemia, unspecified E11.9 Type 2 diabetes mellitus without complications M10.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, 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 Office Visit 03/11/2017 [facility] Primary [facility], 0 Essential 11:20a AT [facility] (primary) hypertension Office Visit 03/04/2017 [facility] Ronni Durand, M19.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, right hand Z01.818 Encounter for other preprocedural examination I10 Essential (primary) hypertension E78.00 Pure hypercholesterolemia, unspecified E11.9 Type 2 diabetes mellitus without complications M10.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, 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 F32.9 Major depressive disorder, single episode, unspecified K21.9 Gastro-esophageal reflux disease without esophagitis E55.9 Vitamin D deficiency, unspecified J30.1 Allergic rhinitis due to pollen M48.00 Spinal stenosis, site unspecified Office Visit 01/12/2017 1:00p [facility] AT [facility], [facility] Essential [facility] (primary) hypertension E78.00 Pure hypercholesterolemia, unspecified E11.9 Type 2 diabetes mellitus without complications M10.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, 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 F32.9 Major depressive disorder, single episode, unspecified K21.9 Gastro-esophageal reflux disease without esophagitis E55.9 Vitamin D deficiency, unspecified J30.1 Allergic rhinitis due to pollen M48.00 Spinal stenosis, site unspecified Z00.00 Encntr for general adult medical exam w/o abnormal findings Z23 Encounter for immunization Z12.31 Encntr screen mammogram for malignant neoplasm of breast Z13.820 Encounter for screening for osteoporosis Office Visit 09/09/2016 11:20a [facility] Ronni Durand, M10.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, AT [facility] right hand Z01.818 Encounter for other preprocedural examination L03.011 Cellulitis of right finger I10 Essential (primary) hypertension E78.00 Pure hypercholesterolemia, unspecified E04.2 Nontoxic multinodular goiter F32.9 Major depressive disorder, single episode, unspecified K21.9 Gastro-esophageal reflux disease without esophagitis E55.9 Vitamin D deficiency, unspecified J30.1 Allergic rhinitis due to pollen M48.00 Spinal stenosis, site unspecified E11.9 Type 2 diabetes mellitus without complications Office Visit 09/08/2016 [facility] Ronni Durand, L03.011 Cellulitis of 9:40a AT [facility] right finger Office Visit 05/04/2016 [facility] Care Ronni Durand, E11.9 Type 2 diabetes 9:20a AT [facility] mellitus without complications I10 Essential (primary) hypertension E78.00 Pure hypercholesterolemia, unspecified E04.2 Nontoxic multinodular goiter F32.9 Major depressive disorder, single episode, unspecified J06.9 Acute upper respiratory infection, unspecified Plan of Treatment Future Appointment(s):11/24/2018 11:00 am - SADE Shaw at [facility] AT [facility]02/02/2019 11:00 am - Ronni Durand RPA at [facility] AT [facility]34/02/2019 - SHANNAN Shaw-CE05.90 Thyrotoxicosis, unspecified without thyrotoxic crisis or stoNew Medication:Methimazole 5 mg - 1 by mouth twice a dayNew Xrays:Ultrasound Head/Neck Soft Tissues (thyroid, parathyroid,etc), Scheduled: 08/16/18
--- OUTSIDE RECORDS SUMMARY | 2018-08-16 16:57 | XMS REPORT | Continuity of Care Document ---
:1935 External Reference #:[id number] Author Name Arelis Howell Care Team Providers Name Role Phone Ronni Durand PA Care Team Information Hand Upper And Bottom Lacer Unavailable Ronni Durand PA Primary Care Physician Unavailable Payers Date Identification Numbers Payment Provider Subscriber Policy Number: [id number] [place] PayID: [id number] [address] [place] [address] Policy Number: [id number] [facility] Fariba Colindres PayID: [id number] [address] [place] [address] Family History Date Family Member(s) Observation Comments General Peripheral Vascular Disease (PVD) father General Alcoholism father Social History Type Date Description Comments Sex Unknown Marital Status Smoke-Free Home is smoke-free Pets None Tobacco Use Start: Unknown Never Smoked Cigarettes ETOH Use Rarely consumes wine Recreational Drug Use Denies Drug Use Allergies, Adverse Reactions, Alerts Active Allergies Reaction Severity Comments Date Penicillin stomach issues 10/21/2017 Oxycontin 10/21/2017 Augmentin 12/01/2017 Zithromax 12/01/2017 Flagyl halucinations 12/30/2017 Tramadol nausea 12/30/2017 Medications Active Medications SIG Qnty Indications Ordering Provider Date Olmesartan Medoxomil 1 by mouth every Unknown 40mg day Tablets Allopurinol daily Unknown 100mg Tablets Metoprolol Tartrate 1 by mouth twice Unknown 50mg a day Tablets Simvastatin 1 by mouth every Unknown 20mg Tablets night at bedtime Alprazolam 2 tabs daily and Unknown 0.25mg Tablets prn Vitamin D-3 1 by mouth every Unknown 5000Unit day Tablets Aleve 1 by mouth every Unknown 220mg Tablets 12 hours as needed Aspirin Ec 1 by mouth every Unknown 325mg Tablets day Ranitidine HCL 1 by mouth twice Unknown 150mg a day Tablets Vitamin C 1 by mouth every Unknown 1000mg Tablets day Nystatin 3 times per day Unknown [id number]/GM as needed Cream History Medications Clindamycin HCL 1 by mouth three Hari Antunez MD 11/26/2017 - 300mg times a day for 7 12/30/2017 Capsules days after surgery Vital Signs Date Vital Result Comment 12/07/2017 10:40am BP Systolic 134 mmHg BP Diastolic 72 mmHg Respiratory Rate 16 /min 11/26/2017 8:01am BP Systolic 144 mmHg BP Diastolic 86 mmHg Heart Rate 80 /min Body Temperature 97.7 F Respiratory Rate 16 /min 10/21/2017 10:41am BP Systolic 120 mmHg BP Diastolic 72 mmHg Heart Rate 76 /min Respiratory Rate 16 /min Height 59 inches 4'11" Weight 174.00 lb BMI (Body Mass Index) 35.1 kg/m2 Results Test Date Facility Test Result H/L Range Note Surgical/Pathology 07/13/2018 [facility] (Pathology) Mater See Comment: [address] [address] [phone] Cicd10 See Comment: 2 Fdiag See Comment: 3 Signed See Comment: 4 Grossd See Comment: 5 Picd10 See Comment: 6 CPT See Comment: 7 Laboratory test 07/13/2018 [facility] (Pathology) PDF [id number] SEE IMAGE finding [address] [address] [phone] Surgical/Patholog 11/26/2017 [facility] (Pathology) Mater See [address] [address] Comment: [place], [place] [address] [phone] Cicd10 See Comment: 9 Frosec See Comment: 10 Fdiag See Comment: 11 Signed See Comment: 12 Grossd See Comment: 13 Picd10 See Comment: 14 CPT See Comment: 15 Laboratory test 11/26/2017 [facility] (Pathology) PDF [id number] SEE IMAGE finding [address] [address] [phone] Surgical/Patholog 10/21/2017 [facility] (Pathology) Mater See 16 y [address] [facility], [address] Comment: [place] [address] [phone] Cicd10 See Comment: 17 Fdiag See Comment: 18 Signed See Comment: 19 Grossd See Comment: 20 [email or web address] See Comment: 21 CPT See Comment: 22 Laboratory test 10/21/2017 [facility] (Pathology) PDF [id number] SEE IMAGE finding [address] [facility], [address] [place] [address] [phone] 1 Material submitted: . chest - MIDLINE CHEST. Modifiers: mid 2 Clinician provided ICD-10: D48.5 3 Diagnosis: BENIGN KERATOSIS WITH DERMAL FIBROSIS, MIDLINE CHEST. CIF/07/15/2018 4 Electronically signed: . Jerry Ware MD, Pathologist 5 Gross description: . Specimen received in formalin labeled "midline chest" are two lewis to cook irregular skin shaves measuring 0.5 and 0.7 cm in greatest dimension. The surfaces are slightly raised, smooth to finely irregular with faint mottled pigmentation. Submitted in toto. (1 block) AMBER /RICKEY 6 Pathologist provided ICD-10: L85.8 7 CPT . 413059 8 Material submitted: . NOSE SUTURE AT 12:00 - FROZEN 9 Clinician provided ICD-10: C44.311 10 Frozen section diagnosis: . Frozen section opinion: "BASAL CELL CARCINOMA. MARGINS NEGATIVE" as interpreted by Dr. Lee. Frozen section diagnosis called to Dr. Rush at 9:40 am on 11/26/17. MPF/CIF 11 Diagnosis: EXCISION, NOSE, BASAL CELL CARCINOMA, INFILTRATIVE TYPE. MARGINS FREE OF TUMOR. [facility]29[facility]2017 12 Electronically signed: . Rodolfo Lee MD, Pathologist 13 Gross description: . Specimen received fresh for frozen section and labeled "excision nose" is an oval portion of skin measuring 1.7 x 1.1 x 0.3 cm with a central 1.0 x 0.7 cm defect. A suture triplett 12:00. The 12:00 to 3:00 to 6:00 margin is inked orange and the remaining margins are inked black. The 12:00 margin is in block 1, the 6:00 margin in block 2, and cross sections from 3:00 to 9:00 in blocks 3 and 4. (4 blocks) KS /NABOR 14 Pathologist provided ICD-10: C44.311 15 CPT . 209849, 966202, 752754, 852256, 660017 16 Material submitted: . NOSE 17 Clinician provided ICD-10: C44.311 18 Diagnosis: NOSE, BASAL CELL CARCINOMA, NODULAR TYPE, WITH ASSOCIATED ULCERATION. TUMOR EXTENDS TO DEEP AND PERIPHERAL MARGINS OF THE SPECIMEN. [facility]2017 19 Electronically signed: . Rodolfo Lee MD, Pathologist 20 Gross description: . Specimen received in formalin and labeled with the patient's name and "shave biopsy nose lesion" is a cook pink skin shave measuring 0.7 x 0.3 cm. The surface has a slightly raised smooth to wrinkled lesion measuring 0.5 cm in greatest dimension. It is trisected. Submitted entirely. (1 block) VE /LRI 21 Pathologist provided ICD-10: C44.311 22 CPT . 932519 Procedures Date Code Description Status 07/13/2018 12431 Shave Skin Lesion .6-1CM Trunk/Arm/Leg Completed 11/29/2017 68832 Skin Tissue Rearrange 10.1-30 SQ CM Eyelid/Nose/Ear/Lip Completed 11/26/2017 04080 Excise Malig Lesion 1.1-2CM Face/Ear/Eyelid/Nose/Lip Completed 10/21/2017 42094 Shave Skin Lesion 1.1-2CM Face/Ear/Eyelid/Nose/Lip/Mucous Completed Membr Encounters Type Date Location Provider Dx Diagnosis Office Visit 07/13/2018 [facility] Hari Rush MD D48.5 Neoplasm of 3:15p 210 uncertain behavior of skin Z85.820 Personal history of malignant melanoma of skin L85.8 Other specified epidermal thickening Plan of Treatment Future Appointment(s):01/16/2019 9:30 am - Hari Rush MD at [facility] 210
[2018-08-16 17:08] VITALS: BP 153/48
--- NOTE | 2018-08-16 18:21 | UC ---
Upper Extremity HPI - HPI Summary HPI Summary: Per machine erector: "Had difficulty getting foot up high enough to step over a curb and she fell. Hit right hand and knees. Pt c/o pain to right hand. ROM is good, pt c/o pain along lateral side with movement. Superficial abrasion to left knee. " -granddaughter is Denise (armor reconnaissance vehicle driver). here w/ dtr. -has had trouble lifting leg high enough to cl;ear steps/curbs. has not done PT for it. -no bruising or bleeding. able to ambulate - History of Current Complaint Chief Complaint: UCUpperExtremity Stated Complaint: S/P FALL, RT WRIST, B/L KNEE INJURY Time Seen by Provider: 08/16/18 18:18 Pain Intensity: 5 - Allergies/Home Medications Allergies/Adverse Reactions: Allergies Allergy/AdvReac Type Severity Reaction Status Date / Time amoxicillin [From Augmentin] Allergy GI Upset Verified 08/16/18 17:09 azithromycin [From Zithromax] Allergy GI Upset Verified 08/16/18 17:10 clavulanic acid Allergy GI Upset Verified 08/16/18 17:09 [From Augmentin] cyclobenzaprine Allergy Hallucinati Verified 08/16/18 17:09 [From Flexeril] ons oxycodone [From OxyContin] Allergy GI Upset Verified 08/16/18 17:10 Home Medications: Home Medications ALPRAZolam TAB* [Xanax TAB*] 0.25 mg PO BID PRN 08/16/18 [History Confirmed 04/05] Allopurinol TAB* [Zyloprim 100 MG TAB*] 100 mg PO DAILY 08/16/18 [History Confirmed 08/16/18] Ascorbic Acid TAB* [Vitamin C TAB*] 1,000 mg PO DAILY 08/16/18 [History Confirmed 08/16/18] Aspirin TAB* [Aspirin 325 MG TAB*] 325 mg PO DAILY 08/16/18 [History Confirmed 08/16/18] Cholecalciferol (Vitamin D3) [Vitamin D3] 2,000 unit PO DAILY 08/16/18 [History Confirmed 08/16/18] Loratadine 10 mg PO DAILY PRN 08/16/18 [History Confirmed 08/16/18] Metoprolol Tartrate TAB* [Lopressor TAB*] 50 mg PO BID 08/16/18 [History Confirmed 08/16/18] Naproxen Sodium [Aleve] 220 mg PO BID 08/16/18 [History Confirmed 08/16/18] Olmesartan (NF) [Benicar (NF)] 40 mg PO DAILY 08/16/18 [History Confirmed ] Saline NASAL SPRAY 0.65%* [Sodium Chloride 0.65% Nasal [place]*] 1 spray BOTH NARES Q4H PRN 08/16/18 [History Confirmed 08/16/18] Simvastatin 20 mg PO DAILY 08/16/18 [History Confirmed 08/16/18] raNITIdine HCl [Ranitidine HCl] 150 mg PO BID 08/16/18 [History Confirmed ] PMH/Surg Hx/FS Hx/Imm Hx Previously Healthy: Yes Cardiovascular History: Hypertension - Surgical History Surgical History: Yes Surgery Procedure, Year, and Place: colon polyp removed - Family History Known Family History: Positive: Hypertension - Social History Alcohol Use: Rare Substance Use Type: None Smoking Status (MU): Never Smoked Tobacco Review of Systems All Other Systems Reviewed And Are Negative: Yes Constitutional: Positive: Negative Skin: Positive: Other - left knee abrasion Eyes: Positive: Negative ENT: Positive: Negative Respiratory: Positive: Negative Cardiovascular: Positive: Negative Gastrointestinal: Positive: Negative Genitourinary: Positive: Negative Motor: Positive: Negative Neurovascular: Positive: Negative Musculoskeletal: Positive: Arthralgia Psychological: Positive: Negative Is Patient Immunocompromised?: No Physical Exam Triage Information Reviewed: Yes Appearance: Well-Appearing, No Pain Distress, Well-Nourished - very pleasant Vital Signs: Initial Vital Signs Temp 98.1 F 08/16/18 16:57 Pulse 68 08/16/18 16:57 Resp 18 08/16/18 16:57 BP 153/48 08/16/18 16:57 Pulse Ox 98 08/16/18 16:57 Vital Signs Reviewed: Yes Eye Exam: Normal Neck exam: Normal Respiratory Exam: Normal Respiratory: Positive: Lungs clear, Normal breath sounds, No respiratory distress, No accessory muscle use Cardiovascular Exam: Normal Cardiovascular: Positive: RRR, Pulses Normal, Brisk Capillary Refill Abdominal Exam: Normal Abdomen Description: Positive: Nontender, Soft Musculoskeletal: Positive: Other: - minimal tenderness at ulnar wrist. no bruising, no erythema. no skin tear. CR brisk. sensation intact. no deformity - left knee w/ small clean abrasion. no bleeding/bruising Neurological Exam: Normal Psychological Exam: Normal Upper Extremity Course/Dx - Course Course Of Treatment: left knee xray: "IMPRESSION: OSTEOPENIA. STATUS POST LEFT KNEE ARTHROPLASTY. NO ACUTE OSSEOUS INJURY. THE DEGREE OF OSTEOPENIA MAY MAKE A NONDISPLACED FRACTURE RADIOGRAPHICALLY OCCULT. IF SYMPTOMS PERSIST, RECOMMEND REPEAT IMAGING." Right wrist: "IMPRESSION: OSTEOPENIA. OSTEOARTHRITIS PLAIN FILM FINDINGS OF OSTEOMYELITIS ARE RELATIVELY LATE FINDINGS. IF THERE IS PERSISTENT CLINICAL CONCERN FOR OSTEOMYELITIS, RECOMMEND CORRELATION WITH FOLLOWUP IMAGING, THREE-PHASE BONE SCANNING, WHITE BLOOD CELL SCAN, AND/OR MRI OF THE AFFECTED REGION." -there is no concern for osteomeylitis clinically at this time. h/o left thumb gout surgery -no frx seen. recommend rpt xrays if sx increase or persist. - Differential Dx/Diagnosis Differential Diagnosis/HQI/PQRI: Contusion, Strain, Sprain Provider Diagnosis: Fall (on) (from) other stairs and steps, initial encounter, Muscle weakness Discharge - Sign-Out/Discharge Documenting (check all that apply): Patient Departure All imaging exams completed and their final reports reviewed: Yes - Discharge Plan Condition: Stable Disposition: HOME Patient Education Materials: Fall Prevention for Older Adults (ED) Referrals: Ronni Singh [Primary Care Provider] - Additional Instructions: The xrays do not show fracture. There is bone thinning that can mask a fracture sometimes. If your pain does not resolve. you should be evaluated again within 2 wks. Ice and rest. I recommend home care PT for balance training and fall prevention to help prevent future falls. - Billing Disposition and Condition Condition: STABLE Disposition: Home
== END 2018-08-16 18:34 | disposition home or self-care (01) ==
LOC: UCCORT 16:30
DX: Z04.3 Encounter for examination and observation following other accident (principal); W01.0XXA Fall on same level from slipping, tripping and stumbling without subsequent striking against object, initial encounter; Y93.89 Activity, other specified; Y92.9 Unspecified place or not applicable; M62.81 Muscle weakness (generalized); I10 Essential (primary) hypertension
CPT/HCPCS: 99202; G0463